=== PATIENT | female | born 1940 | race Caucasian/White ===

== ENCOUNTER → 2018-10-02 | Outpatient (CLI) | payer OTHER ==
[~2018-10-02] VITALS: Ht 154.9 cm; Wt 59.0 kg
[~2018-10-02] MED LIST: ALENDRONATE SOD70 MG PO; ATORVASTATIN CA40 MG PO; COSOPT OCUMETER10 M1 OPHTHALMIC; IBUPROFEN 800800 M1 PO; LUMIGAN2.5 M1 OPHTHALMIC; MEDROLDOSEPACK PO; NORCO 5-325 TA1 EACH PO; TRAMADOL 50 MG50 MG PO
--- NOTE | ~2018-10-02 | HPC ---
[facility] [place] [address] PAIN MANAGEMENT CONSULTATION Name: BARB AVINA Room #: REG [facility].#: [id number] Admission: 10/02/18 Attend Phys: Hugo Oreilly DO Discharge: Date of : 39 Report #: [id number] THIS REPORT FOR: //name// CC: Donavon Ruby DATE OF SERVICE: 10/02/2018 REFERRING PHYSICIAN: Donavon Rose DO CHIEF COMPLAINT: Low back pain, right lower extremity pain and paresthesias. HISTORY OF PRESENT ILLNESS: As you know, the patient is a 78-year-old female with an acute onset of low back pain and lower extremity pain with paresthesias that began on 09/06/2018. The patient states her pain became so intense she was unable to go about activities of daily living. She sought evaluation through her primary care physician who trialled conservative medication therapy. The patient continued to experience pain despite 2 different Medrol Dosepak in hopes of improving symptoms. She ultimately underwent MRI of the lumbar spine, which shows marked right-sided central canal stenosis and right lateral recess stenosis at the L4-L5 level. She is also noted to have right-sided disk protrusion abutting the S1 nerve root at the L5-S1 level. Due to lack of improvement with conservative treatment, the patient was subsequently referred to our clinic to trial epidural injections and discuss possible surgical options. The patient indicates today pain is continuous, describes the pain as aching, numbness, tingling, annoying in its presentation. Places current pain score 7/10, daily average at 8/10, worst pain has been is 9/10. The patient states standing and doing certain activities exacerbate symptoms, sitting tends to improve pain. The patient has been referred to our service to discuss treatment options for suspected lumbar radiculopathy secondary to the findings at the L4-L5 and L5-S1 level. PAST MEDICAL HISTORY: 1. Dyslipidemia. 2. Osteoporosis. PAST SURGICAL HISTORY: 1. Appendectomy. 2. Tonsillectomy. 3. Right breast biopsy. 4. Cataract removal. SOCIAL HISTORY: The patient denies tobacco, alcohol, IV or illicit drug use. [facility] [address] [place] [address] PAIN MANAGEMENT CONSULTATION Name: BARB AVINA Room #: REG [facility].#: [id number] Admission: 10/02/18 Attend Phys: Hugo Oreilly DO Discharge: Date of : 39 Report #: [id number] She is retired, retired years ago. She is accompanied by her present in room today. REVIEW OF SYSTEMS: Positive for eye disease, wearing corrective eyewear, cataracts, nocturia, low back pain, right lower extremity pain and paresthesias, intermittent left lower extremity pain and paresthesias, difficulty with ambulation secondary to pain. All other review of systems negative per 12-point review of systems other than those listed in history of present illness. Pain impact score 40/70 indicating [id number] interference of daily activities secondary to pain. ALLERGIES: No known drug allergies. CURRENT MEDICATIONS: Hydrocodone 5/325 one tab every 8 hours p.r.n. for pain, ibuprofen 800 mg 3 times a day, Cosopt 1 drop each eye per day, alendronate 70 mg once a week, atorvastatin 40 mg per day, Lumigan one drop each eye per day. IMAGING: MRI lumbar spine obtained 09/11/2018 shows L5-S1 broad-based disk bulge, central right paracentral disk extrusion causing marked right-sided central canal stenosis and right lateral recess stenosis with compression of the descending right L5 nerve root as well as right-sided foraminal stenosis. At L5-S1, there is a disk protrusion on the right side causing abutment of the S1 nerve root on the right. Multilevel arthritic changes noted. PQRS: The patient has known osteoarthritis of the low back and bilateral hips. No rheumatoid arthritis. She is placing pain intensity today at 7/10. She is a fall risk, but has not had a fall in the last 3 months. She is not on blood thinners. She is not treated for hypertension. She is not on chronic opioids for greater than 6 weeks. She has a low assessment for opioid addiction. Pain impact tool 40/70, moderate to severe. PHYSICAL EXAMINATION: VITAL SIGNS: Blood pressure 138/55, pulse 65, respiratory rate 16 and unlabored. The patient is 98% on room air. Height 5 feet 1 inch tall, weight 130 pounds, BMI calculated 24.6. GENERAL: Well-developed, well-nourished, well-hydrated 78-year-old female. She appears her stated age. She is placing current pain score at 7/10. HEENT: Normocephalic, atraumatic. Pupils equal, round, reactive to light. Extraocular muscles are intact. Sclerae nonicteric without injection. The patient does have noted essential tremors. She is deemed a fair historian. LUNGS: Clear. No wheeze, rhonchi or rales. CARDIOVASCULAR: Regular. No appreciable gallop, no rub. ABDOMEN: Soft, nontender, nondistended, normoactive bowel sounds. EXTREMITIES: Show no clubbing, no cyanosis, and no edema. MUSCULOSKELETAL: Seated straight leg raising negative. Supine straight leg raising positive right. Britt's test negative. Modified Gaenslen's positive [facility] [address] [place] [address] PAIN MANAGEMENT CONSULTATION Name: BARB AVINA Room #: REG [facility].#: [id number] Admission: 10/02/18 Attend Phys: Hugo Oreilly DO Discharge: Date of : 39 Report #: [id number] for axial low back pain. Ankle clonus negative. Babinski is negative. Gait is antalgic favoring right lower extremity over left. Muscle bulk and tone appears equal and symmetrical when comparing right lower extremity to left lower extremity. Stance slightly forward flexed lumbar spine. Lumbar provocation testing does increase axial back pain. ASSESSMENT: 1. Symptomatic lumbar radiculopathy. 2. Severe spinal stenosis of lumbar spine. 3. Displacement of lumbar intervertebral disk with radiculopathy. 4. Lumbosacral spondylosis with radiculopathy. 5. Severe neural foraminal stenosis of lumbar spine. 6. Facet arthropathy of the lumbar spine. 7. Lumbar degeneration. 8. Chronic intractable pain. PLAN: 1. Based on today's physical exam and history the patient has provided, the description the patient uses in regards to pain as well as the location of symptoms as well as the findings of her MRI, likely source of the patient's pain is lumbar radiculopathy. The patient and I discussed at length the findings in her MRI that show severe central canal stenosis at the L4-L5 level and severe neural foraminal stenosis both at the L4-L5 and L5-S1 level with abutment of both the L5 and S1 nerve roots respectively. We discussed these findings with the patient today and correlated to her current symptoms. After review of this MRI, we discussed the treatment options, which were as follows. We discussed physical therapy, stretching exercises, core strengthening as a treatment option. We discussed medication management with suggestions for additions of neuropathic pain medications and a consistent nonsteroidal anti-inflammatory. We discussed epidural injections for which the patient was referred to our clinic and ultimately surgical options, which will be ultimately necessary. After reviewing the risks and benefits of all proposed treatment options, the patient and I did discuss the possibility of beginning with epidural injections to remain as conservative as possible for initial treatment. The patient was advised that [employer] party payer restrictions require the authorization be obtained before we could have the patient undergo the epidural injection. We will begin the authorization process immediately. Once this has been completed, we will have the patient return to undergo the procedure. We will contact the patient in 4-7 working days as soon as we receive this authorization. 2. No medication changes made at today's visit. The patient will continue current medical therapy as previously prescribed. 3. We wish to thank Dr. Rose for the referral of the patient to our clinic. We will keep you apprised of her response to treatment as we address [address] [address] PAIN MANAGEMENT CONSULTATION Name: BARB AVINA [place] Room #: REG CLNatali Zepeda#: [id number] Admission: 10/02/18 Attend Phys: Hugo Oreilly DO Discharge: Date of : 39 Report #: [id number] her lumbar radicular symptoms secondary to the findings of the L4-L5 and L5-S1 level. We will keep you abreast of any possible changes in medication therapy suggested and whether or not surgical options may be necessary. Again, we wish to thank you for the opportunity to see the patient in consultation. By: [id number] Hugo Oreilly DO /nt
[2018-10-02 09:40] VITALS: BP 138/55
== END ==
LOC: PAIN 06:18
DX: M47.27 Other spondylosis with radiculopathy, lumbosacral region (principal); M51.16 Intervertebral disc disorders with radiculopathy, lumbar region; G89.4 Chronic pain syndrome; M48.061 Spinal stenosis, lumbar region without neurogenic claudication; M12.88 Other specific arthropathies, not elsewhere classified, other specified site; Z79.899 Other long term (current) drug therapy

== ENCOUNTER → 2018-10-09 | Outpatient (CLI) | payer OTHER ==
[~2018-10-09] VITALS: Ht 154.9 cm; Wt 58.2 kg
--- NOTE | ~2018-10-09 | HPC ---
[facility] [place] [address] PAIN MANAGEMENT CONSULTATION Name: BARB AVINA Room #: REG [facility].#: [id number] Admission: 10/09/18 Attend Phys: Hugo Oreilly DO Discharge: Date of : 39 Report #: [id number] THIS REPORT FOR: //name// CC: Donavon Rose DO Hugo Oreilly DATE OF SERVICE: 10/09/2018 CHIEF COMPLAINT: Low back pain, right lower extremity pain with paresthesias. HISTORY OF PRESENT ILLNESS: As you know, the patient is a 78-year-old female with acute onset of low back pain, lower extremity pain with paresthesias that began 09/06/2018. She states her pain became so intense, she was unable to go back to activities of daily living. She sought evaluation through her primary care physician who trialed conservative treatment options. Unfortunately, these did not improve her symptoms. She was sent for MRI of the lumbar spine, which shows severe central canal stenosis of the lumbar spine. She was referred to our clinic to trial epidural injections under fluoroscopic guidance. The patient was seen in consultation on 10/02/2018 diagnosed with symptomatic lumbar radiculopathy secondary to severe spinal stenosis. The spinal stenosis that she has is multifactorial secondary to displacement of lumbar intervertebral disk and facet arthropathy. She also suffers from severe neural foraminal stenosis contributing to her ongoing pain. She was established today's appointment to undergo a lumbar epidural injection under fluoroscopic guidance to improve radicular symptoms. She returns today with pain level of 1-2/10 requesting this epidural injection. ALLERGIES: No known drug allergies. CURRENT MEDICATIONS: Lumigan, atorvastatin, alendronate, Cosopt, ibuprofen, hydrocodone. SOCIAL HISTORY: The patient denies tobacco, alcohol, IV or illicit drug use. She is retired, retired years ago, accompanied by her and granddaughter present in room today. IMAGING: No new imaging available. PQRS: The patient has osteoarthritis, low back, bilateral hips, no rheumatoid arthritis. She is placing pain intensity today 1-2/10. She is a fall risk, but has not had a fall in the last 3 months. She is not on blood thinners, not treated for hypertension. She is on opioids and has been for an extended period of time. Pain impact 40 of 70 indicating [id number] interference of [place] [address] PAIN MANAGEMENT CONSULTATION Name: BARB AVINA Room #: REG CLNatali Zepeda#: [id number] Admission: 10/09/18 Attend Phys: Hugo Oreilly DO Discharge: Date of : 39 Report #: [id number] PHYSICAL EXAMINATION: VITAL SIGNS: Blood pressure 113/52, pulse 70, respiratory rate 16 and unlabored, the patient is 97% on room air. Height 5 feet 1 inches tall, weight 128.2 pounds, BMI calculated 24.2. GENERAL: Well-developed, well-nourished, well-hydrated 78-year-old female appearing stated age, placing current pain score 1-2/10. HEENT: Normocephalic, atraumatic. Pupils equal, round, reactive to light. Speech is fluent. EXTREMITIES: Show no clubbing, no cyanosis, no edema. MUSCULOSKELETAL: Seated straight leg raising negative. Supine straight leg raising positive right. Britt's test negative. Gait mildly antalgic favoring right lower extremity over left. Gait is wide based. ASSESSMENT: 1. Symptomatic lumbar radiculopathy. 2. Severe spinal stenosis of lumbar spine. 3. Displacement of lumbar intervertebral disk with radiculopathy. 4. Lumbosacral spondylosis with radiculopathy. 5. Severe neural foraminal stenosis of lumbar spine. 6. Facet arthropathy of lumbar spine. 7. Lumbar degeneration. 8. Chronic intractable pain. PLAN: 1. The patient returns today in followup visit having received precertification to undergo the first in the series of epidural injections under fluoroscopic guidance to address lumbar radicular symptoms secondary to severe spinal stenosis. The patient has been advised of the risks and the benefits of this procedure. These risks include but are not necessarily limited to bleeding, bruising, infection, worsening pain, no relief of pain, also risk of temporary or permanent muscle weakness, temporary or permanent nerve damage, possible paralysis and . The patient states she understood and wished to proceed. 2. No medication changes made at today's visit. The patient will continue current medical therapy as previously prescribed. 3. We will see this patient back in followup visit in 1 month for possible next in the series of epidural injections to address lumbar radicular symptoms secondary to spinal stenosis. <ELECTRONICALLY SIGNED> By: Hugo Oreilly DO 10/16/18 1109 [id number] Hugo Oreilly DO /nt
--- NOTE | ~2018-10-09 | P ---
[facility] [place] [place] [address] PROCEDURE REPORT Name: BARB AVINA Room #: REG [facility]#: [id number] Admission: 10/09/18 Attend Phys: Hugo Oreilly DO Discharge: Date of : 39 Report #: [id number] THIS REPORT FOR: //name// CC: Donavon Ruby DATE OF SERVICE: 10/09/2018 DESCRIPTION OF PROCEDURE: L5-S1 right paramedian epidural steroid injection under fluoroscopic guidance. This is the first procedure of the first series that the patient is undergoing. After obtaining written consent, the patient was taken back to the fluoroscopy suite, placed in a prone position with pillow under the abdomen to decrease lumbar lordosis. The skin overlying the lumbosacral area was then prepped and draped in aseptic fashion. The L5-S1 vertebral interspace was then identified by AP fluoroscopy. The skin and subcutaneous tissue overlying the target site of injection was anesthetized with 3 mL 1% lidocaine. A 20-gauge 3-1/2-inch Tuohy needle was then advanced under fluoroscopic guidance towards the epidural space using a right paramedian approach. The epidural space was identified using loss of resistance to air technique. After negative aspiration for heme or cerebrospinal fluid, a total of 0.4 mL of Omnipaque was injected. A lumbar epidurogram was confirmed using both AP and lateral fluoroscopy. After negative aspiration for heme or cerebrospinal fluid, 5 mL of a solution containing 2 mL 40 mg per mL, 80 mg total triamcinolone, 3 mL lidocaine 1% was injected in increments. Contrast spread was noted posterior epidural space. The needle was then retracted approximately half way and needle tract flushed with 1 mL of 1% lidocaine. Needle was then removed. There were no apparent sensory or motor deficits in the lower extremity following the procedure. A sterile bandage was placed over the injection site. The heart rate, pulse, oximetry and blood pressure were continuously monitored after the procedure. There were no apparent complications. The patient tolerated the procedure well and was carefully escorted to the recovery room in stable condition. There were no apparent complications. After meeting discharge criteria, the patient was then discharged home. <ELECTRONICALLY SIGNED> By: Hugo Oreilly DO 10/16/18 1109 [id number] Hugo Oreilly DO /nt
[2018-10-09 08:42] VITALS: BP 113/52
== END | disposition home or self-care (01) ==
LOC: PAIN 07:58
DX: M51.16 Intervertebral disc disorders with radiculopathy, lumbar region (principal); M48.061 Spinal stenosis, lumbar region without neurogenic claudication; M47.27 Other spondylosis with radiculopathy, lumbosacral region; M46.96 Unspecified inflammatory spondylopathy, lumbar region; G89.29 Other chronic pain; M19.90 Unspecified osteoarthritis, unspecified site; Z79.899 Other long term (current) drug therapy; Z98.890 Other specified postprocedural states; Z79.891 Long term (current) use of opiate analgesic

== ENCOUNTER → 2018-12-04 | Outpatient (CLI) | payer OTHER ==
[~2018-12-04] VITALS: Ht 154.9 cm; Wt 54.4 kg
[~2018-12-04] MED LIST changes: +NEURONTIN 300300 M1 PO
--- NOTE | ~2018-12-04 | HPC ---
[facility] [address] [place] [address] PAIN MANAGEMENT CONSULTATION Name: BARB AVINA Room #: REG [facility].#: [id number] Admission: 12/04/18 Attend Phys: Hugo Oreilly DO Discharge: Date of : 39 Report #: [id number] THIS REPORT FOR: //name// CC: Donavon Ruby DATE OF SERVICE: 12/11/2018 REFERRING PHYSICIAN: Donavon Rose DO. CHIEF COMPLAINT: Low back pain, right lower extremity pain and paresthesias. HISTORY OF PRESENT ILLNESS: As you know, the patient is a 78-year-old female who returns today in followup visit having received precertification to undergo a lumbar epidural injection under fluoroscopic guidance to address lumbar radicular symptoms secondary to severe and progressively worsening spinal stenosis of lumbar spine. As you are aware, the patient's spinal stenosis is multifactorial secondary to arthritic changes and displacement of lumbar intervertebral disks. She returns today in followup visit to undergo the first in a series of epidural injections in hopes of improving pain. She denies any changes in her medical history since our last visit. No new injury, no new trauma. ALLERGIES: No known drug allergies. CURRENT MEDICATIONS: Hydrocodone 5/325 one tab every 8 hours p.r.n. for pain, ibuprofen 800 mg t.i.d., Cosopt 1 drop each eye per day. Alendronate 70 mg once a week, atorvastatin 40 mg per day, Lumigan one drop each eye per day. SOCIAL HISTORY: The patient denies tobacco, alcohol, IV or illicit drug use. She is retired. Accompanied by her granddaughter and who were present in room today. IMAGING: No new imaging available. PQRS: The patient has known arthritic changes of the lumbar spine, bilateral hips, no rheumatoid arthritis. She is placing pain intensity 7/10. She is a fall risk, but has not had a fall in the last 3 months. She is not on blood thinners, not treated for hypertension. She has been on chronic opioid medications. She has a low opioid addiction potential, placing pain impact score 40/70, moderate interference of daily activities secondary to pain. PHYSICAL EXAMINATION: VITAL SIGNS: Blood pressure 118/64, pulse 73, respiratory rate 16 and unlabored. The patient is 98% on room air. Height 5 feet 1 inch tall, weight [facility] [address] [place] [address] PAIN MANAGEMENT CONSULTATION Name: BARB AVINA Room #: REG [facility]..#: [id number] Admission: 12/04/18 Attend Phys: Hugo Oreilly DO Discharge: Date of : 39 Report #: [id number] 120 pounds, BMI calculated 22.7. GENERAL: Well-developed, well-nourished, well-hydrated 78-year-old female, appearing stated age, placing current pain score 7/10. HEENT: Normocephalic, atraumatic. Pupils equal, round, reactive to light. EXTREMITIES: Show no clubbing, no cyanosis, no edema. MUSCULOSKELETAL: Seated straight leg raising negative. Supine straight leg raising positive right. Britt test negative. Modified Gaenslen positive for axial low back pain. Gait is antalgic favoring left lower extremity over right. ASSESSMENT: 1. Symptomatic lumbar radiculopathy. 2. Severe spinal stenosis of lumbar spine. 3. Displacement of lumbar intervertebral disk with radiculopathy. 4. Lumbosacral spondylosis with radiculopathy. 5. Severe neural foraminal stenosis of lumbar spine. 6. Facet arthropathy of the lumbar spine. 7. Lumbar degeneration. 8. Chronic intractable pain. PLAN: 1. The patient returns today in followup visit having completed her antibiotic therapy for a urinary tract infection. She states that she has improved significantly from that standpoint, returning today to undergo epidural injection under fluoroscopic guidance. We received precertification for the patient to undergo procedure today. She has been advised of the risks and the benefits of the procedure, states understood and wished to proceed. 2. No medication changes were made at today's visit. The patient will continue current medical therapy as previously prescribed. 3. We will see the patient back in followup visit on an as needed basis for an epidural injection under fluoroscopic guidance. PROCEDURE NOTE DESCRIPTION OF PROCEDURE: L5-S1 right paramedian epidural steroid injection under fluoroscopic guidance. After obtaining written consent, the patient was taken back to fluoroscopy suite, placed in prone position with pillow under abdomen to decrease lumbar lordosis. Skin overlying lumbosacral area then prepped and draped in aseptic fashion. Lumbar intervertebral space was identified by AP fluoroscopy. Skin and subcutaneous tissue overlying target site of injection anesthetized with 3 mL of 1% lidocaine. A 20-gauge 3-1/2 inch Tuohy needle advanced under fluoroscopic guidance towards the epidural space using a right paramedian approach. Epidural space identified using loss of resistance to air technique. After negative aspiration for heme [facility] [address] [place] [address] PAIN MANAGEMENT CONSULTATION Name: BARB AVINA Room #: REG [facility]#: [id number] Admission: 12/04/18 Attend Phys: Hugo Oreilly DO Discharge: Date of : 39 Report #: [id number] or cerebrospinal fluid, 1 mL of Omnipaque injected. A lumbar epidurogram confirmed using both AP and lateral fluoroscopy. After negative aspiration for heme or cerebrospinal fluid, 5 mL of a solution containing 2 mL 40 mg per mL, 80 mg total triamcinolone, 3 mL lidocaine 1% injected slowly. Needle retracted mcfp, flushed with 1 mL of 1% lidocaine and then removed. Sterile bandage placed over injection site. No new motor deficits present in lower extremity following procedure. The patient tolerated procedure well, carefully escorted to recovery room in stable condition. No apparent complications. After meeting discharge criteria, the patient discharged home. By: [id number] Hugo Oreilly DO /nt
--- NOTE | ~2018-12-04 | HPC ---
[facility] [address] [place] [address] PAIN MANAGEMENT CONSULTATION Name: BARB AVINA Room #: REG [facility]..#: [id number] Admission: 12/04/18 Attend Phys: Hugo Oreilly DO Discharge: Date of : 39 Report #: [id number] THIS REPORT FOR: //name// CC: Donavon Ruby DATE OF SERVICE: 12/04/2018 REFERRING PHYSICIAN: Donavon Rose DO CHIEF COMPLAINT: Low back pain, right lower extremity pain and paresthesias. HISTORY OF PRESENT ILLNESS: As you know, the patient is a 78-year-old female with acute onset of low back pain, right lower extremity pain and paresthesias that began on 09/06/2018. States the pain began initially without inciting injury or trauma and progressively worsened. She trialed conservative medication therapy, but did not see significant improvement. She was subsequently referred to our clinic. She underwent an epidural injection under fluoroscopic guidance on 10/09/2018, which provided the patient with near 100% improvement in overall pain lasting for nearly 7 weeks. She returns today in followup visit with recurrence of pain, now reporting pain score 8-9/10. Pain is exacerbated with standing and walking, improves with sitting and medications. She returns today to begin the process of preauthorization to undergo the next in the series of lumbar epidural injections. ALLERGIES: No known drug allergies. CURRENT MEDICATIONS: Hydrocodone 5/325 one tab every 8 hours p.r.n. for pain, ibuprofen 800 mg 3 times a day, Cosopt 1 drop each eye per day, alendronate 70 mg once a week, atorvastatin 40 mg per day, Lumigan one drop each eye per day. SOCIAL HISTORY: The patient denies tobacco, alcohol, IV or illicit drug use. She is retired, retired years ago. She is accompanied by her granddaughter and great grandchildren today. IMAGING: No new imaging available. PQRS: The patient has known osteoarthritic changes in the low back and bilateral hips, no rheumatoid arthritis. She is placing pain intensity at 8-9/10. She is a fall risk, but has not had a fall in the last 3 months. She does use intermittently a cane for ambulation. She is not on blood thinners. She is not treated for hypotension. She has been on opioids for greater than 6 weeks, being provided by her PCP. Pain impact tool indicates pain level of 40/70, moderate to severe interference of daily activities secondary to pain. [facility] [address] [place] [address] PAIN MANAGEMENT CONSULTATION Name: BARB AVINA Room #: REG [facility]#: [id number] Admission: 12/04/18 Attend Phys: Hugo Oreilly DO Discharge: Date of : 39 Report #: [id number] PHYSICAL EXAMINATION: VITAL SIGNS: Blood pressure 129/54, pulse is 70, respiratory rate 16 and unlabored, the patient is 96% on room air. Height 5 feet 1 inch tall, weight 120 pounds, BMI calculated 22.7. GENERAL: Well-developed, well-nourished, well-hydrated 78-year-old female appearing stated age, placing current pain score at 8-9/10. HEENT: Normocephalic, atraumatic. Pupils equal, round, reactive to light. Extraocular muscles are intact. The patient deemed a fair historian. EXTREMITIES: Show no clubbing, no cyanosis, no edema. MUSCULOSKELETAL: Seated straight leg raising negative. Supine straight leg raising remains positive right. Britt's test negative. Modified Gaenslen's positive for axial low back pain. Ankle clonus negative. Babinski is negative. Gait is antalgic favoring right lower extremity over left. The patient's stance is forward flexed lumbar spine and loss of lordotic curvature. ASSESSMENT: 1. Symptomatic lumbar radiculopathy. 2. Severe spinal stenosis of the lumbar spine. 3. Displacement of lumbar intervertebral disk with radiculopathy. 4. Lumbosacral spondylosis with radiculopathy. 5. Severe neural foraminal stenosis of the lumbar spine. 6. Facet arthropathy of the lumbar spine. 7. Lumbar degeneration. 8. Chronic intractable pain. PLAN: 1. The patient returns today in followup visit requesting to undergo next in the series of epidural injections. She reports near 100% improvement in overall pain with the epidural injection provided in September. She was advised [employer] pay[employer] restrictions require the authorization be obtained before she could undergo the next in the series of epidural injections. We will begin the authorization process immediately. Once we have obtained this authorization, we will have the patient return to undergo the next in the series of lumbar epidural injections. 2. The patient will be started on gabapentin, will be utilizing a night dose 300 mg dose, she will continue for 3 nights, then escalate to 600 mg or 2 tabs at night. We will discuss efficacy at followup visit. We will also be watching for any side effects of somnolence, decreased mental acuity, disorientation, confusion with the initiation of this medication. 3. We will see the patient back in followup visit once we have achieved authorization for the patient to undergo epidural injection under fluoroscopic guidance to address lumbar radicular symptoms recurrent on the right side. By: [id number] Hugo Oreilly DO /arielle
[2018-12-04 10:52] VITALS: BP 129/54
--- NOTE | 2018-12-04 11:11 | NUR ---
Pain Clinic Assessment: 1. History of Osteoarthritis: Not Applicable History of Rheumatoid Arthritis: Not Applicable 2. Height: 5 ft. 1 in. 154.9 cm. Weight: 120.0 lb. oz. 54.432 kg. Patient's BMI: 22.7 3. Vital Signs: BP: 129/54 Pulse: 70 Resp: 16 Temp: 02 Sat: 96 ECG Mon: 4. Pain Intensity: 8-9 5. Fall Risk: Dizziness: N Needs help standing or walking: Y Fallen in the last 3 months: N Fall risk comments: 6. Patient on Blood Thinner: None 7. History of Hypertension: N 8. Opioid Therapy greater than 6 weeks: Y Opiate Contract Signed: 9. Risk Assessment Tool Provided: 10. Functional Assessment Tool: 11. Recreational Drug Use: Never Drug Type: Tobacco Use: Never Smoker Tobacco Type: Amount or Packs/day: How Many Years: Alcohol Use: No Frequency: Quant:
== END ==
LOC: PAIN 06:53
DX: M47.26 Other spondylosis with radiculopathy, lumbar region (principal); M48.061 Spinal stenosis, lumbar region without neurogenic claudication; G89.4 Chronic pain syndrome; M46.96 Unspecified inflammatory spondylopathy, lumbar region

== ENCOUNTER → 2018-12-11 | Outpatient (CLI) | payer OTHER ==
[~2018-12-11] VITALS: Ht 154.9 cm; Wt 54.4 kg
[2018-12-11 10:01] VITALS: BP 118/64
== END | disposition home or self-care (01) ==
LOC: PAIN 06:48
DX: M54.16 Radiculopathy, lumbar region (principal); Z79.899 Other long term (current) drug therapy

== ENCOUNTER → 2019-08-27 | Outpatient (CLI) | payer OTHER ==
[~2019-08-27] VITALS: Ht 154.9 cm; Wt 50.6 kg
[~2019-08-27] MED LIST changes: +PROLIA60 MG/1 ML SUBQ
[2019-08-27 09:01] VITALS: BP 132/51
--- NOTE | 2019-08-27 09:16 | NUR ---
Pain Clinic Assessment: 1. History of Osteoarthritis: Not Applicable History of Rheumatoid Arthritis: Not Applicable 2. Height: 5 ft. 1 in. 154.9 cm. Weight: 111.6 lb. oz. 50.621 kg. Patient's BMI: 21.1 3. Vital Signs: BP: 132/51 Pulse: 58 Resp: 14 Temp: 02 Sat: 100 ECG Mon: 4. Pain Intensity: 3 SEATED. 7 WITH MOVEMENT 5. Fall Risk: Dizziness: N Needs help standing or walking: N Fallen in the last 3 months: Y Fall risk comments: 6. Patient on Blood Thinner: None 7. History of Hypertension: N 8. Opioid Therapy greater than 6 weeks: Y Opiate Contract Signed: 9. Risk Assessment Tool Provided: 10. Functional Assessment Tool: 11. Recreational Drug Use: Never Drug Type: Tobacco Use: Never Smoker Tobacco Type: Amount or Packs/day: How Many Years: Alcohol Use: No Frequency: Quant:
--- NOTE | 2019-09-03 08:01 | HPC ---
[facility] [address] [place] [address] PAIN MANAGEMENT CONSULTATION Name: BARB AVINA [id number] Admission: 08/27/19 Attend Phys: Hugo Oreilly DO Discharge: Date of : 39 Report #: [id number] THIS REPORT FOR: //name// CC: Donavon Ruby DATE OF SERVICE: 08/27/2019 REFERRING PHYSICIAN: Donavon Rose DO CHIEF COMPLAINT: Low back pain, bilateral lower extremity pain with paresthesias, left greater than right. HISTORY OF PRESENT ILLNESS: As you know, the patient is a very pleasant 79-year-old female who returns today in followup visit with recurrent low back pain, bilateral lower extremity pain, left greater than right. She has undergone epidural injections under fluoroscopic guidance to address lumbar radicular symptoms secondary to progressively worsening spinal stenosis. Most recent epidural injection performed, 12/11/2018. The patient received near 9 months of improvement in overall pain with that injection. She returns today in followup visit, denying any new injury or trauma with recurrence of pain in typical lumbar radicular distribution. She indicates that her pain has progressively worsened. She now places pain score at 3/10 in a seated position, 7/10 with activity. She returns today in followup visit to begin the preauthorization process to undergo next in the series of epidural injections. Again, the patient found good efficacy with previous epidural injection, near 100% improvement in overall pain lasting for nearly 9 months. She returns to begin the authorization process today. ALLERGIES: No known drug allergies. CURRENT MEDICATIONS: Prolia 60 mg subcutaneously every 6 months, gabapentin 300 mg b.i.d., Cosopt 1 drop each eye twice a day, alendronate 70 mg once a week, atorvastatin 40 mg per day, Lumigan 1 drop each eye per day. SOCIAL HISTORY: The patient denies tobacco, alcohol, IV or illicit drug use. She is retired, retired years ago. She is accompanied by a family member present in room today. IMAGING: No new imaging available. PQRS: The patient has known arthritic changes of the lumbar spine, bilateral hips and mildly in the bilateral thumbs. No rheumatoid arthritis. She is placing pain today anywhere from 3-7/10 depending on activity. She is not a fall risk, but did have a fall in the last 3 months. Apparently, she tripped [facility] [address] [place] [address] PAIN MANAGEMENT CONSULTATION Name: BARB AVINA Room #: REG [facility]#: [id number] Admission: 08/27/19 Attend Phys: Hugo Oreilly DO Discharge: Date of : 39 Report #: [id number] over some objects at home. She is not on blood thinners. She is not treated for hypertension. She is not on chronic opioids. She is a low risk for opioid addiction based on our addiction potential tool. Pain impact score of 40/70 indicating moderate interference of daily activities secondary to pain. PHYSICAL EXAMINATION: VITAL SIGNS: Blood pressure 132/51, pulse 58, respiratory rate 14 and unlabored. The patient is 100% on room air. Height 5 feet 1 inch tall, weight 111.6 pounds, BMI calculated 21.1. GENERAL: Well-developed, well-nourished, well-hydrated 79-year-old female appearing stated age. Pain is rated anywhere from 3-7/10. HEENT: Normocephalic, atraumatic. Pupils equal, round, reactive to light. Speech is fluent. EXTREMITIES: Show no clubbing, no cyanosis, and no edema. MUSCULOSKELETAL: Lower extremity strength is symmetrical today, 5/5, intact to light touch from L1 through S2 dermatomes. Seated straight leg raising negative. Supine straight leg raising positive bilaterally, left greater than right. Ankle clonus negative. Babinski is negative. Gait is antalgic favoring left lower extremity over right. ASSESSMENT: 1. Symptomatic lumbar radiculopathy. 2. Severe and progressively worsening spinal stenosis of lumbar spine. 3. Displacement of lumbar intervertebral disk with radiculopathy. 4. Lumbosacral spondylosis with radiculopathy. 5. Severe neuroforaminal stenosis of the lumbar spine. 6. Facet arthropathy of the lumbar spine. 7. Degeneration of the lumbar spine. 8. Chronic intractable pain. PLAN: 1. The patient has returned today in followup visit to begin the authorization process to undergo next in the series of lumbar epidural injections under fluoroscopic guidance. The patient reported excellent benefit with previous epidural injection, near 100% improvement in overall pain lasting for nearly 9 months. She returns today in followup. She returns today in followup visit to begin the preauthorization process. The patient and I discussed that authorization could take anywhere from 4-7 working days. We will begin this process immediately. 2. We will see the patient back in followup visit once we have achieved authorization for the patient to undergo epidural injection under fluoroscopic guidance. We have tentatively placed an appointment for next Monday to undergo the epidural injection. This should give us more than enough time for prior authorization. 3. No medication changes made at today's visit. The patient will continue current medical therapy as prior prescribed. [address] [address] PAIN MANAGEMENT CONSULTATION Name: BARB AVINA Room #: REG [facility].#: [id number] Admission: 08/27/19 Attend Phys: Hugo Oreilly DO Discharge: Date of : 39 Report #: [id number] 4. We will see the patient back in followup visit once authorization has been achieved to undergo lumbar epidural injection. <ELECTRONICALLY SIGNED> By: Hugo Oreilly DO 09/03/19 0801 [id number] Hugo Oreilly DO /nt
== END ==
LOC: PAIN 06:44
DX: M48.062 Spinal stenosis, lumbar region with neurogenic claudication (principal); M51.16 Intervertebral disc disorders with radiculopathy, lumbar region; M47.27 Other spondylosis with radiculopathy, lumbosacral region; M12.88 Other specific arthropathies, not elsewhere classified, other specified site; G89.4 Chronic pain syndrome; Z79.899 Other long term (current) drug therapy

== ENCOUNTER → 2019-09-03 | Outpatient (CLI) | payer OTHER ==
[~2019-09-03] VITALS: Ht 154.9 cm; Wt 51.2 kg
[2019-09-03 13:03] VITALS: BP 123/54
--- NOTE | 2019-09-03 13:09 | NUR ---
Pain Clinic Assessment: 1. History of Osteoarthritis: Not Applicable History of Rheumatoid Arthritis: Not Applicable 2. Height: 5 ft. 1 in. 154.9 cm. Weight: 112.8 lb. oz. 51.166 kg. Patient's BMI: 21.3 3. Vital Signs: BP: 123/54 Pulse: 71 Resp: 18 Temp: 02 Sat: 100 ECG Mon: 4. Pain Intensity: 5 5. Fall Risk: Dizziness: N Needs help standing or walking: N Fallen in the last 3 months: N Fall risk comments: 6. Patient on Blood Thinner: None 7. History of Hypertension: N 8. Opioid Therapy greater than 6 weeks: Y Opiate Contract Signed: 9. Risk Assessment Tool Provided: 10. Functional Assessment Tool: 11. Recreational Drug Use: Never Drug Type: Tobacco Use: Never Smoker Tobacco Type: Amount or Packs/day: How Many Years: Alcohol Use: No Frequency: Quant:
--- NOTE | 2019-09-10 08:01 | HPC ---
[facility] [place] [address] PAIN MANAGEMENT CONSULTATION Name: BARB AVINA Room #: REG [facility]#: [id number] Admission: 09/03/19 Attend Phys: Hugo Oreilly DO Discharge: Date of : 39 Report #: [id number] THIS REPORT FOR: //name// CC: Donavon Rose DO Hugo Oreilly DATE OF SERVICE: 09/03/2019 REFERRING PHYSICIAN: Donavon Rose D.O. CHIEF COMPLAINT: Low back pain, bilateral lower extremity pain, left greater than right. HISTORY OF PRESENT ILLNESS: As you know, the patient is a very pleasant 79-year-old female returning in followup visit to undergo epidural injection under fluoroscopic guidance. We last saw the patient on 08/27/2019 to obtain preauthorization for the patient to undergo the epidural injection. We have received this authorization today. She returns to undergo the epidural injection to address pain for which she gives a pain score of 5/10. She denies injury or trauma or any changes in medical history since our last visit. ALLERGIES: No known drug allergies. CURRENT MEDICATIONS: Prolia 60 mg subcutaneously every 6 months, gabapentin 300 mg b.i.d., Cosopt 1 drop each eye twice a day, alendronate 70 mg once a week, atorvastatin 80 mg per day, Lumigan 1 drop each eye per day. SOCIAL HISTORY: The patient denies tobacco, alcohol, IV or illicit drug use. She is retired, retired years ago. She is accompanied by a family member present in room today. IMAGING: No new imaging available. PQRS: The patient has known arthritic changes of the lumbar spine, bilateral hips mildly noted within the bilateral thumbs. No rheumatoid arthritis. She is placing pain intensity at 5/10, not a fall risk, has not had a fall in the last 3 months. She is not on blood thinners. She is not treated for hypertension. She is on opioid medications, but has a low opioid addiction potential. She is placing pain impact score at 40/70 indicating moderate interference with daily activities secondary to pain. PHYSICAL EXAMINATION: VITAL SIGNS: Blood pressure 123/54, pulse 71, respiratory rate 18 and unlabored. The patient is 100% on room air. Height 5 feet 1 inch tall, weight 112.8 pounds, BMI calculated at 21.3. [address] [address] PAIN MANAGEMENT CONSULTATION Name: BARB AVINA Room #: REG [facility] [place]#: [id number] Admission: 09/03/19 Attend Phys: Hugo Oreilly DO Discharge: Date of : 39 Report #: [id number] GENERAL: Well-developed, well-nourished, well-hydrated 79-year-old female appearing stated age, pain is rated today at 5/10. HEENT: Normocephalic, atraumatic. Pupils equal, round, reactive to light. Extraocular muscles are intact. EXTREMITIES: Show no clubbing, no cyanosis, and no notable edema. MUSCULOSKELETAL: Seated straight leg raising negative. Supine straight leg raising positive left greater than right. This is noted at about 45-50 degree angle. Ankle clonus negative. Babinski is negative. Gait is antalgic favoring left lower extremity. ASSESSMENT: 1. Symptomatic lumbar radiculopathy. 2. Severe and progressively worsening spinal stenosis of lumbar spine. 3. Displacement of lumbar intervertebral disk with radiculopathy. 4. Lumbosacral spondylosis with radiculopathy. 5. Severe neural foraminal stenosis of lumbar spine. 6. Facet arthropathy of the lumbar spine. 7. Lumbar degeneration. 8. Chronic intractable pain. PLAN: 1. The patient returns today in followup visit requesting to undergo epidural injection under fluoroscopic guidance. We have achieved authorization for the patient to undergo the procedure to address her 5/10 pain today. She has been advised the risks and benefits of the procedure, states understood and wished to proceed. 2. No medication changes made at today's visit. The patient will continue current medical therapy as previously prescribed. 3. We will see the patient back in followup visit on an as needed basis possible next in the series of lumbar epidural injections. PROCEDURE NOTE: DESCRIPTION OF PROCEDURE: L5-S1 left paramedian epidural steroid injection under fluoroscopic guidance. After obtaining written consent, the patient was taken back to fluoroscopy suite, placed in prone position with pillow under abdomen to decrease lumbar lordosis. Skin overlying the lumbosacral area then prepped and draped in aseptic fashion. The L5-S1 vertebral interspace was identified by AP fluoroscopy. Skin and subcutaneous tissue overlying target site of injection anesthetized with 3 mL of 1% lidocaine. A 20-gauge 3-1/2 inch Tuohy needle advanced under fluoroscopic guidance towards the epidural space using left paramedian approach. Epidural space identified using loss of resistance to air technique. After negative aspiration for heme [facility] [address] [place] [address] PAIN MANAGEMENT CONSULTATION Name: BARB AVINA Room #: REG [facility]#: [id number] Admission: 09/03/19 Attend Phys: Hugo Oreilly DO Discharge: Date of : 39 Report #: [id number] or cerebrospinal fluid, 1 mL of Omnipaque injected. Lumbar epidurogram confirmed using both AP and lateral fluoroscopy. After negative aspiration for heme or cerebrospinal fluid, 5 mL of a solution containing 2 mL 40 mg per mL, 80 mg total triamcinolone along with 3 mL lidocaine 1% injected slowly. Needle retracted mcc, flushed with 1 mL of 1% lidocaine and then removed. Sterile bandage placed over injection site. No new motor deficits present in lower extremity following procedure. The patient tolerated procedure well, carefully escorted to recovery room in stable condition. No apparent complications. After meeting discharge criteria, the patient discharged home. <ELECTRONICALLY SIGNED> By: Hugo Oreilly DO 09/10/19 0801 [id number] Hugo Oreilly DO /nt
== END | disposition home or self-care (01) ==
LOC: PAIN 08-20 06:48
DX: M54.5 Low back pain (principal); M51.16 Intervertebral disc disorders with radiculopathy, lumbar region; M47.27 Other spondylosis with radiculopathy, lumbosacral region; M48.061 Spinal stenosis, lumbar region without neurogenic claudication; M47.26 Other spondylosis with radiculopathy, lumbar region; G89.29 Other chronic pain; Z79.891 Long term (current) use of opiate analgesic; Z79.899 Other long term (current) drug therapy